=== PATIENT | male | born 1960 | race Hispanic/Latino ===

== ENCOUNTER 2018-10-18 11:41 | Day surgery (SDC) | payer MEDICARE ==
[2018-10-17 11:17] VITALS: BMI 27.4
[~2018-10-18 11:41] MED LIST: EPINEPHrine 0.3 MG, Dextrose 50% 3 ML in Ophthalmic Irrigation Solution 500 ML IVP SCH; Fentanyl 100 MCG/2 ML VIAL ONE; Midazolam HCl 2 mg/2 ml Vial ONE
[2018-10-18] MEDS ORDERED: Phenylephrine 2.5% Ophth Soln 5 ML BOT ONE (11:54)
[2018-10-18] MEDS ORDERED: Cyclopentolate 1% Opth Drop 2 ML BOT ONE (11:54)
--- NOTE | 2018-10-18 19:05 | OP ---
DATE OF PROCEDURE: 10/18/2018 PREOPERATIVE DIAGNOSES: Vitreous hemorrhage, epiretinal membranes, proliferative diabetic retinopathy, left eye. POSTOPERATIVE DIAGNOSIS: Vitreous hemorrhage, epiretinal membranes, proliferative diabetic retinopathy, left eye. PROCEDURE PERFORMED: Pars plana vitrectomy, membrane peel, left eye. ANESTHESIA: Local with monitored anesthesia care. PROCEDURE IN DETAIL: The patient was identified in preoperative holding area. Appropriate informed consent for the planned surgical procedure on the left eye had been obtained. The patient was transported to the operative suite. Appropriate cardiopulmonary monitoring was established. Local anesthesia obtained using retrobulbar modified Van Lint lid block using 50:50 mixture of 4% lidocaine and 0.75% bupivacaine. The patient was prepped and draped in usual sterile manner for ophthalmic surgery. Left eye lid speculum was placed in left eye. A 25-gauge trocar was placed in conjunctiva and sclera superotemporally, inferotemporally, supranasally. Infusion line was placed inferotemporally. Light pipe vitreous cutter was inserted into the eye. Core vitrectomy was performed. Dense vitreous hemorrhage was removed from the eye revealing tractional elements on the retina. These were peeled from the nerve and retinal periphery without complication. Panretinal photocoagulation was placed into all non-treated non-macular areas of the retina. Trocars were removed. The eye was noted to retain pressure well. Retrobulbar Kenalog and subconjunctival Ancef were placed. Antibiotic ointment placed. The eye was patched and shielded. The patient was taken to the postoperative recovery unit in good condition having suffered no immediate perioperative complications. The patient was instructed to keep patch and shield on, avoid lifting or bending. Followup appointment with Dr. Hall. Job ID: [id number]
== END 2018-10-18 14:33 | disposition home or self-care (01) ==
LOC: SDC 11:41
PROVIDERS: ATTEND Ophthalmology Retina Specialist
PROC: 08T53ZZ Resection of Left Vitreous, Percutaneous Approach (ICD-10-PCS; principal; 2018-10-18)
PROC: 08NF3ZZ Release Left Retina, Percutaneous Approach (ICD-10-PCS; 2018-10-18)
DX: H43.12 Vitreous hemorrhage, left eye (principal); E11.3592 Type 2 diabetes mellitus with proliferative diabetic retinopathy without macular edema, left eye; Z79.84 Long term (current) use of oral hypoglycemic drugs; Z79.899 Other long term (current) drug therapy
CPT/HCPCS: J0171; J2250; J3010

== ENCOUNTER 2019-11-25 09:14 | Outpatient (CLI) | payer MEDICARE ==
--- NOTE | 2019-11-25 10:41 | RAD ---
LUMBAR SPINE 2 VIEWS: HISTORY: Low back pain. FINDINGS: Mild dextroscoliosis. Multilevel disk-osteophytosis and facet arthrosis. No focal bone lesion. No fracture or dislocation. IMPRESSION: Generalized spondylosis. No fracture or dislocation. Possible small left lower pole renal calculus. POS: OFF
--- NOTE | 2019-11-25 10:45 | RAD ---
LEFT HP 2 VIEWS: LEFT HIP 2 VIEWS: HISTORY: Left hip pain. FINDINGS/IMPRESSION: Mild osteoarthrosis change left hip joint and sacroiliac joint without acute fracture or dislocation or other acute process. POS: OFF
--- NOTE | 2019-11-25 10:47 | RAD ---
RIGHT HIP 2 VIEWS: Date: 11/25/2019 HISTORY: Right hip pain without injury. FINDINGS/IMPRESSION: Mild degenerative and osteoarthrosis change. No acute fracture or dislocation. POS: OFF
--- NOTE | 2019-11-25 10:58 | RAD ---
LEFT HAND 3 VIEWS: HISTORY: Left hand pain. FINDINGS: Osteoarthrosis changes are noted, particularly of the trapezium 1st metacarpal joint. Arteriovascula r calcifications. IMPRESSION: Osteoarthrosis and degenerative change. No fracture or dislocation. Vascular calcifications. POS: OFF
== END 2019-11-25 09:15 | disposition home or self-care (01) ==
LOC: BICRAD 09:14
PROVIDERS: ATTEND Family Medicine
DX: M54.5 Low back pain (principal); M25.542 Pain in joints of left hand; M25.552 Pain in left hip; M19.042 Primary osteoarthritis, left hand; I70.90 Unspecified atherosclerosis; M16.0 Bilateral primary osteoarthritis of hip
CPT/HCPCS: 72100

== ENCOUNTER 2020-02-10 12:22 | Inpatient (IN) | payer MEDICARE ==
[2020-02-10 15:15] LABS: #Eosinphils 0.2 thou/uL (0.0-0.7); #Lymphocytes 1.7 thou/uL (1.20-3.40); #Neutrophils 12.1 thou/uL (1.40-6.50); %Basophils 0.2 % (0.0-1.0); %Eosinophils 1.4 % (0.0-10.0); %Lymphocytes 11.6 % (21.0-51.0); %Monocytes 6.6 % (0.0-10.0); %Neutrophils 80.3 % (42.0-75.0); Hemoglobin 15.1 g/dL (14.0-18.0); Mean Corpuscular Hemoglobin 30.9 pg (27.0-31.0); Mean Corpuscular Volume 90.9 fL (78.0-98.0); Mean Platelet Volume 7.2 fL (7.4-10.4); Platelet Count 330 thou/uL (130-400); RBC Distribution Width 12.6 % (11.5-14.5)
--- NOTE | 2020-02-10 15:29 | RAD ---
PORTABLE CHEST: Date: 02/10/2020 INDICATION: Right leg pain. Comparison made to chest film of 06/09/2014. There is abnormal density overlying the left midline lung. This could represent focal consolidation o r underlying lung mass. Recommend clinical correlation and consider further evaluation with CT chest. Right lung appears clear. Heart and mediastinum unremarkable. IMPRESSION: Abnormal density left mid lung. Findings could represent focal infiltrate if there are clinical signs of pneumonia. Follow-up is recommended. If there is no clinical evidence of pneumonia, suggest follo w-up CT chest. POS: OFF
[2020-02-10 15:39] LABS: ALT (SGPT) 18 U/L (8-55); AST (SGOT) 12 U/L (5-34); Albumin 3.7 g/dL (3.4-4.8); Alkaline Phosphatase 115 U/L (40-110); Anion Gap 19 mmol/L (10-20); BUN (Urea Nitrogen) 19 mg/dL (8.4-25.7); Bilirubin, Total 0.4 mg/dL (0.2-1.2); Calc. Creatinine Clearance 0 mL/min (70-130); Calcium 9.9 mg/dL (7.8-10.44); Carbon Dioxide 21 mmol/L (23-31); Chloride 101 mmol/L (98-107); Glucose 245 mg/dL (80-115); Potassium 4.2 mmol/L (3.5-5.1); Protein, Total 7.7 g/dL (5.8-8.1); Sodium 137 mmol/L (136-145)
[2020-02-10] MEDS ORDERED: Vancomycin 1 GM/200 ML BAG ONE (16:07)
[2020-02-10] MEDS ORDERED: Cefepime 2 GM VIAL ONE (16:07)
[2020-02-10] MEDS ORDERED: Lidocaine 1% w/Epinephrine 1:100K 20 ML VIAL ONE (16:49)
[2020-02-10] MEDS ORDERED: Morphine 4 MG/ML VIAL ONE (16:57)
[2020-02-10] MEDS ORDERED: Ondansetron PF 4 MG/2 ML Vial ONE (16:57)
[2020-02-10] MEDS ORDERED: Dextrose 50% Abboject 50 ML SYRINGE SLOW IVP PRN (18:02)
[2020-02-10] MEDS ORDERED: Acetaminophen 325 MG TAB PO PRN (18:02)
[2020-02-10] MEDS ORDERED: HumaLOG 300 UNITS/3 ML VIAL SC PRN ×2 (18:02)
[2020-02-10] MEDS ORDERED: Senokot S 8.6-50 MG TAB PO PRN (18:02)
[2020-02-10] MEDS ORDERED: Morphine 2 MG/ML VIAL SLOW IVP PRN (18:02)
[2020-02-10] MEDS ORDERED: Guaifenesin DM 100-10/5 ML UDCUP PO PRN (18:02)
[2020-02-10] MEDS ORDERED: Ondansetron PF 4 MG/2 ML Vial IVP PRN (18:02)
[2020-02-10] MEDS ORDERED: Bisacodyl 10 MG SUPP PR PRN (18:02)
[2020-02-10] MEDS ORDERED: Dextrose 5% in Water 1,000 ML IV PRN (18:02)
--- NOTE | 2020-02-10 18:35 | HP ---
REASON FOR ADMISSION: Abscess x2 over right medial thigh and right medial knee aspects and sepsis. HISTORY OF PRESENTING ILLNESS: The patient gives history of developing a pimple in the medial aspect of his right thigh and the medial aspect of his right knee, both at the same time, 8 days back. This has been progressively enlarging and started to hurt and become red. The patient also developed fever. The pain got worse and he was also not able to use his prosthesis to ambulate on the right knee. No exposure to COVID. No cough or expectoration. PAST MEDICAL AND SURGICAL HISTORY: History of diabetes mellitus type 2, hypertension, dyslipidemia, right BKA, left toes amputated. CURRENT MEDICATIONS: 1. Lisinopril 10 mg daily. 2. Farxiga 10 mg daily. ALLERGIES: NO KNOWN DRUG ALLERGIES. PERSONAL HISTORY: Does not abuse alcohol or drugs. No history of smoking. The patient lives with his , has a prosthesis, but has not been able to use it due to the current abscess, swelling, and pain. FAMILY HISTORY: Mother is living and is 87 years old. He does not know much about his father. CODE STATUS: Full. Power of employment attorney is his . REVIEW OF SYSTEMS: CONSTITUTIONAL: Negative for weight loss or gain, ability to conduct usual activities. SKIN: Negative for rash, itching. EYES: Negative for double vision, pain. ENT/MOUTH: Negative for nose bleeding, neck stiffness, pain, tenderness. CARDIOVASCULAR: Negative for palpitations, dyspnea on exertion, orthopnea. RESPIRATORY: Negative for shortness of breath, wheezing, cough, hemoptysis, fever or night sweats. GASTROINTESTINAL: Negative for poor appetite, abdominal pain, heartburn, nausea, vomiting, constipation, or diarrhea. GENITOURINARY: Negative for urgency, frequency, dysuria, nocturia. MUSCULOSKELETAL: Negative for pain, swelling. NEUROLOGIC/PSYCHIATRIC: Negative for anxiety, depression. ALLERGY/IMMUNOLOGIC: Negative for skin rash, bleeding tendency. PHYSICAL EXAMINATION: GENERAL: The patient is a 60-year-old male who is currently not in any acute distress. VITAL SIGNS: Blood pressure 154/83, pulse 100 per minute, respiratory rate 20 per minute, temperature 98.2 degrees Fahrenheit, saturating 99% on room air. NECK: Supple. No elevated JVD. HEENT: Eyes; extraocular muscles intact. Pupils reacting to light. Oral cavity, mucous membranes are dry. No exudates or congestion. CARDIOVASCULAR SYSTEM: S1 and S2 heard. Regular rhythm. RESPIRATORY SYSTEM: Air entry 1+ bilateral. No rales or rhonchi. ABDOMEN: Soft. Bowel sounds heard. No tenderness, rigidity, or guarding. EXTREMITIES: The patient has had incision and drainage done with removal of nearly 100 mL of purulent material from his right medial thigh and right medial knee aspect abscess per Dr. Griffin. He still has induration around the incision site. Peripheral pulses are 1+ bilateral. No ischemic ulcers or gangrene. CENTRAL SYSTEM: No gross focal motor deficits noted. The patient is alert, awake, and oriented. PSYCHIATRIC SYSTEM: The patient's mood is euthymic. No hallucinations or delusions. LABORATORY DATA: White count of 15, H and H 15 and 44, platelet count 330 with 80% neutrophils. Serum bicarb 21, BUN 19, creatinine 1.3, serum glucose 245. Liver enzymes within normal limits. Albumin is 3.7. Chest x-ray done shows questionable infiltrate in the left mid lung area. CLINICAL IMPRESSION AND PLAN: The patient will be admitted to medical floor for right lower extremity abscess x2. The patient likely has underlying pockets of further purulence with extended induration and erythema around the site. He will be on vancomycin and Zosyn. Hopefully, wound cultures have been obtained in the ER and we will follow up on that. We will also consult Dr. Poole with the patient likely require requiring more extended incision to clear the abscess. He has known history of diabetes and his serum sugar was 245. We will continue his lisinopril and Crestor as before. We will gently hydrate him with normal saline at 100 mL per hour. We will also obtain a COVID-19 PCR if he requires further debridement. Job ID: [id number]
[2020-02-10] MEDS ORDERED: Famotidine 20 MG TAB ONE (20:16)
[2020-02-10] MEDS: Famotidine 20 MG TAB PO SCH (20:26)
[2020-02-10] MEDS: Sodium Chloride 0.9% 1,000 ML IV SCH (20:27)
[2020-02-10] MEDS: Insulin Glargine 10 UNITS in Pre-Filled Syringe 1 EACH SC SCH (20:49)
[2020-02-10] MEDS: Piperacillin/Tazobactam 3.375 GM in Sodium Chloride 0.9% 100 ML IVPB SCH (23:54)
[2020-02-11 00:46] LABS: SARS-CoV-2 MS2 Positive; SARS-CoV-2 N Gene Negative; SARS-CoV-2 S Gene Negative; SARS-CoV-2 by NAA Not Detected (NotDetected); SARS-CoV-2 orf1ab Negative
[2020-02-11 03:40] VITALS: BMI 26.5
[2020-02-11] MEDS: Piperacillin/Tazobactam 3.375 GM in Sodium Chloride 0.9% 100 ML IVPB SCH ×3 (05:39→21:54)
[2020-02-11] MEDS: Vancomycin HCl 750 MG in Sodium Chloride 0.9% 250 ML 250 ML IVPB SCH ×2 (05:43→18:06)
[2020-02-11] MEDS: Sodium Chloride 0.9% 1,000 ML IV SCH (05:45)
[2020-02-11 06:46] LABS: #Basophils 0.1 thou/uL (0.0-0.2); #Eosinphils 0.2 thou/uL (0.0-0.7); #Lymphocytes 1.9 thou/uL (1.20-3.40); #Monocytes 1.1 thou/uL (0.11-0.59); #Neutrophils 8.8 thou/uL (1.40-6.50); %Basophils 0.7 % (0.0-1.0); %Lymphocytes 15.5 % (21.0-51.0); %Monocytes 9.2 % (0.0-10.0); %Neutrophils 72.6 % (42.0-75.0); Hemoglobin 12.8 g/dL (14.0-18.0); Mean Corpuscular HGB CONC 33.6 g/dL (32.0-36.0); Mean Corpuscular Volume 92.3 fL (78.0-98.0); Mean Platelet Volume 7.1 fL (7.4-10.4); Platelet Count 286 thou/uL (130-400); RBC Distribution Width 12.5 % (11.5-14.5); Red Blood Cell (RBC) Count 4.14 mill/uL (4.70-6.10); White Blood Cell (WBC) Count 12.2 thou/uL (4.8-10.8)
[2020-02-11 07:09] LABS: Anion Gap 15 mmol/L (10-20); BUN (Urea Nitrogen) 17 mg/dL (8.4-25.7); Calc. Creatinine Clearance 74 mL/min (70-130); Calcium 8.6 mg/dL (7.8-10.44); Carbon Dioxide 21 mmol/L (23-31); Chloride 105 mmol/L (98-107); Glucose 198 mg/dL (80-115); Potassium 3.7 mmol/L (3.5-5.1); Sodium 137 mmol/L (136-145)
--- NOTE | 2020-02-11 08:47 | PDOC.HOSPP ---
- Subjective Encounter Date: 02/11/20 Encounter Time: 08:00 Subjective: no pain this morning, feels better is npo for possible debribement - Objective Vital Signs & Weight: Vital Signs (12 hours) Temp Pulse Resp BP Pulse Ox 02/11/20 07:34 98.7 F 68 20 114/68 97 02/11/20 04:43 98.9 F 76 20 116/70 96 02/11/20 00:00 98.8 F 77 20 126/68 98 02/10/20 22:30 98.8 F 95 02/10/20 22:00 101.0 F H 02/10/20 21:53 101.0 F H 89 20 147/71 H 95 Weight Weight 164 lb 9.6 oz I&O: 02/10/20 02/11/20 02/12/20 06:59 06:59 06:59 Intake Total 1750 Output Total 700 Balance 1050 Result Diagrams: 02/11/20 06:20 02/11/20 06:20 Additional Labs: Accuchecks 02/11/20 02/10/20 04:46 20:24 POC Glucose 178 H 201 H Hospitalist ROS - Medication Medications: Active Medications Generic Name Dose Route Start Last Admin Trade Name Freq PRN Reason Stop Dose Admin Acetaminophen 650 mg 02/10/20 18:02 02/10/20 22:00 Acetaminophen 325 Mg Tab PO 650 mg Q4H PRN Administration Headache/Fever/Mild Pain (1-3) Famotidine 20 mg 02/10/20 21:00 02/10/20 20:26 Famotidine 20 Mg Tab PO 20 mg BID DANICA Administration Sodium Chloride 1,000 mls @ 100 mls/hr 02/10/20 18:02 02/11/20 05:45 Normal Saline 0.9% IV 02/11/20 14:01 Not Given .Q10H DANICA Vancomycin HCl 750 mg/ Sodium 250 mls @ 250 mls/hr 02/11/20 05:00 02/11/20 05:43 Chloride IVPB 250 mls 0500,1700 DANICA Administration Piperacillin Sod/Tazobactam 100 mls @ 200 mls/hr 02/10/20 22:00 02/11/20 05:39 Sod 3.375 gm/ Sodium Chloride IVPB 100 mls Q8HR DANICA Administration Insulin Glargine 10 units/ 0.1 mls @ 0 mls/hr 02/10/20 21:00 02/10/20 20:49 Miscellaneous Medication SC 0.1 mls BID DANICA Administration Sodium Chloride 10 ml 02/10/20 21:00 02/10/20 20:53 Flush - Normal Saline 10 Ml Syringe IVF 10 ml Q12HR DANICA Administration - Exam General Appearance: awake alert Eye: PERRL, anicteric sclera ENT: no oropharyngeal lesions, moist mucosa Neck: supple, no JVD Heart: RRR, no murmur Respiratory: no wheezes, no rales Gastrointestinal: soft, non-distended, normal bowel sounds Gastrointestinal - other findings: right thigh and knee area abscess are in dressing Extremities: 1+ LE edema Skin: normal turgor, no rashes Neurological: cranial nerve grossly intact, no focal deficits Psychiatric: normal affect, A&O x 3 Hosp A/P (1) Abscess of right thigh Code(s): L02.415 - CUTANEOUS ABSCESS OF RIGHT LOWER LIMB Status: Acute (2) Sepsis Code(s): A41.9 - SEPSIS, UNSPECIFIED ORGANISM Status: Acute Qualifiers: Sepsis type: sepsis due to unspecified organism Sepsis acute organ dysfunction status: without acute organ dysfunction Qualified Code(s): A41.9 - Sepsis, unspecified organism (3) Diabetes type 2, uncontrolled Code(s): E11.65 - TYPE 2 DIABETES MELLITUS WITH HYPERGLYCEMIA Status: Chronic Qualifiers: Glycemic state: with hyperglycemia Qualified Code(s): E11.65 - Type 2 diabetes mellitus with hyperglycemia (4) HTN (hypertension) Code(s): I10 - ESSENTIAL (PRIMARY) HYPERTENSION Status: Chronic Qualifiers: Hypertension type: essential hypertension Qualified Code(s): I10 - Essential (primary) hypertension (5) History of right below knee amputation Code(s): Z89.511 - ACQUIRED ABSENCE OF RIGHT LEG BELOW KNEE Status: Chronic (6) Dyslipidemia Code(s): E78.5 - HYPERLIPIDEMIA, UNSPECIFIED Status: Chronic - Plan is on vanc and zosyn, await culture results likely might need further exploration of thigh and medial knee abscess with deep pockets/induration continue lantus for now along with lisinopril and crestor await opinion
[2020-02-11] MEDS: HYDROcodone/Acetaminophen 5/325 mg Tablet PO PRN ×3 (09:54→21:52)
[2020-02-11] MEDS: Lisinopril 10 MG TAB PO SCH (11:48)
[2020-02-11] MEDS: Enoxaparin Sodium 40 MG/0.4 ML SYRINGE SC SCH (11:50)
[2020-02-11] MEDS: Insulin Glargine 10 UNITS in Pre-Filled Syringe 1 EACH SC SCH ×2 (11:50→20:33)
[2020-02-11] MEDS: Famotidine 20 MG TAB PO SCH ×3 (11:53→20:30)
[2020-02-11] MEDS: Rosuvastatin 20 MG TAB PO SCH (16:26)
--- NOTE | 2020-02-12 01:46 | CON ---
DATE OF CONSULTATION: 02/11/2020 REASON FOR CONSULTATION: Right leg abscesses. HISTORY OF PRESENT ILLNESS: Patient is a 60-year-old diabetic male, well known to myself from prior operations. He has a history of a right below-knee amputation in approximately 2001. He had an infection with osteomyelitis associated with this in 2015, and I performed a revision of his below-knee amputation about 4 years ago. Because it was revised from existing amputation, I was not really able to get a good muscle flap over the end of the bone. Nonetheless, it has healed appropriately and has worked well for him for 4 years. I also performed 3 or 4 operations in regard to his left foot with a transmetatarsal amputation and subsequent metatarsectomy secondary to infection. The last operation of these was performed, I believe in 2017. I have not evaluated him or seen him in the past 3 years. He presented to the emergency room because of pain and obvious infection involving the medial aspect of his right leg. He notes problems with a sleeve in the prosthesis in the right lower leg. He has apparently had problems with this over the course of the past few years. He believes he has had progressive infection involving his below-knee amputation stump over the course of the past few weeks. He notes that it has become much bigger, more swollen, more painful recently and this led to him presenting to the emergency room last night. Apparently in the emergency room, 2 separate abscesses were drained, 1 in the lower inner thigh and 1 along the below-knee aspect of the stump. He notes significant pain from this and noted severe pain with the drainage procedure. Cultures were obtained and these reveal staphylococcus with sensitivities not yet determined. He has been started on vancomycin and Zosyn. PAST MEDICAL HISTORY: 1. Diabetes mellitus type 2. 2. Hypertension. 3. Dyslipidemia. PAST SURGICAL HISTORY: 1. Right below-knee amputation, 2001. 2. Right below-knee amputation revision, 2016. 3. Three or four operations on his left foot resulting in a transmetatarsal amputation, most recently revised in 2017. PRIMARY CARE PHYSICIAN: Anne Gonzalez MD MEDICATIONS: 1. Lisinopril. 2. Farxiga. ALLERGIES: NO KNOWN DRUG ALLERGIES. PERSONAL AND SOCIAL HISTORY: He does not drink or smoke. He lives with his . He normally ambulates with prosthesis, but he is not currently using this because of the swelling and pain. REVIEW OF SYSTEMS: Ten-system review is obtained, is otherwise entirely unremarkable. FAMILY HISTORY: Noncontributory. PHYSICAL EXAMINATION: VITAL SIGNS: Temperature is 98.1, his temperature upon admission yesterday was 101.0; pulse is 78; blood pressure 156/77. GENERAL: Well-developed, well-nourished, pleasant male resting in bed, in no acute distress. He is alert and oriented x3. HEAD, EYES, EARS, NOSE, AND THROAT: Unremarkable. NECK: Supple without mass or tenderness. LUNGS: Clear to auscultation throughout. CARDIAC: Regular rate and rhythm without murmur. ABDOMEN: Soft, nontender, nondistended. EXTREMITIES: Examination is limited currently to his right lower extremity. He has obvious swelling, fluctuance, erythema, and tenderness along a long segment of his right leg extending from the distal one-third of the thigh down to his amputation stump. There is an area of fluctuance along the medial aspect of his below-knee amputation stump. There is a dry area almost like eschar, a little laterally and I fear this is the bone starting to protrude through the skin. Between those areas of infection on the medial aspect, the skin is taut and shiny and painful. I suspect he had an abscess that began at his distal stump and has tracked proximally. LABORATORY DATA: His white blood cell count yesterday was 15, today it is 12.2; hemoglobin is 12.8 after hydration. His chemistry panel reveals essentially normal electrolytes. His blood sugars are elevated between 140 and 200. ASSESSMENT: Patient with a complex abscess along the medial aspect of the right lower extremity. This will require incision and drainage in the operating room. There are multiple components to this, and I anticipate making a series of counter incisions with irrigation and debridement of the cavity. I would anticipate placement of Andressa drains to allow the infection to resolve. Hopefully, there is no bony infection associated. I will obtain imaging to make sure there is no obvious evidence of osteomyelitis. Job ID: [id number]
[2020-02-12 04:29] LABS: Vancomycin, Trough 9.2 ug/mL
[2020-02-12] MEDS: Piperacillin/Tazobactam 3.375 GM in Sodium Chloride 0.9% 100 ML IVPB SCH ×3 (05:23→21:11)
[2020-02-12] MEDS: Vancomycin 1 GM in Premix Bag 1 BAG IVPB SCH ×2 (05:27→16:34)
[2020-02-12] MEDS: HYDROcodone/Acetaminophen 5/325 mg Tablet PO PRN (06:25)
[2020-02-12] MEDS: Enoxaparin Sodium 40 MG/0.4 ML SYRINGE SC SCH (08:20)
[2020-02-12] MEDS: Lisinopril 10 MG TAB PO SCH (08:24)
[2020-02-12] MEDS: Famotidine 20 MG TAB PO SCH ×2 (08:25→20:33)
[2020-02-12] MEDS: Rosuvastatin 20 MG TAB PO SCH (08:25)
[2020-02-12] MEDS: Insulin Glargine 10 UNITS in Pre-Filled Syringe 1 EACH SC SCH ×2 (08:26→20:34)
[2020-02-12] MEDS ORDERED: Lidocaine 1% PF 5 ML VIAL ONE (09:08)
[2020-02-12] MEDS ORDERED: Ondansetron PF 4 MG/2 ML Vial ONE (09:08)
[2020-02-12] MEDS ORDERED: PROPOFOL 200 MG/20 ML VIAL ONE (09:08)
--- NOTE | 2020-02-12 10:03 | PDOC.HOSPP ---
- Subjective Encounter Date: 02/12/20 Encounter Time: 09:00 Subjective: has medial thigh pain, is npo for surgery today - Objective Vital Signs & Weight: Vital Signs (12 hours) Temp Pulse Resp BP BP Pulse Ox 02/12/20 08:28 98.4 F 63 18 145/74 H 95 02/12/20 08:24 145/74 H 02/12/20 03:47 98.0 F 63 15 143/73 H 96 Weight Admit Weight 164 lb 9.6 oz Weight 164 lb 9.6 oz I&O: 02/11/20 02/12/20 02/13/20 06:59 06:59 06:59 Intake Total 3120 950 Output Total 2400 1620 Balance 720 -670 Result Diagrams: 02/11/20 06:20 02/11/20 06:20 Additional Labs: Accuchecks 02/12/20 02/11/20 02/11/20 04:57 19:46 16:03 POC Glucose 139 H 172 H 140 H 02/11/20 11:09 POC Glucose 156 H Hospitalist ROS - Medication Medications: Active Medications Generic Name Dose Route Start Last Admin Trade Name Freq PRN Reason Stop Dose Admin Acetaminophen 650 mg 02/10/20 18:02 02/10/20 22:00 Acetaminophen 325 Mg Tab PO 650 mg Q4H PRN Administration Headache/Fever/Mild Pain (1-3) Hydrocodone Bitart/Acetaminophen 1 tab 02/10/20 18:02 02/12/20 06:25 Hydrocodone/Acetaminophen 5/325 Mg Tablet PO 1 tab Q4H PRN Administration Moderate Pain (4-6) Enoxaparin Sodium 40 mg 02/11/20 09:00 02/12/20 08:20 Enoxaparin Sodium 40 Mg/0.4 Ml Syringe SC Not Given 0900 DANICA Famotidine 20 mg 02/10/20 21:00 02/12/20 08:25 Famotidine 20 Mg Tab PO 20 mg BID DANICA Administration Piperacillin Sod/Tazobactam 100 mls @ 200 mls/hr 02/10/20 22:00 02/12/20 05:23 Sod 3.375 gm/ Sodium Chloride IVPB 100 mls Q8HR DANICA Administration Insulin Glargine 10 units/ 0.1 mls @ 0 mls/hr 02/10/20 21:00 02/12/20 08:26 Miscellaneous Medication SC Not Given BID DANICA Vancomycin HCl 1 gm/ Device 200 mls @ 200 mls/hr 02/12/20 05:00 02/12/20 05:27 IVPB 200 mls 0500,1700 DANICA Administration Lisinopril 10 mg 02/11/20 09:00 02/12/20 08:24 Lisinopril 10 Mg Tab PO 10 mg DAILY DANICA Administration Rosuvastatin Calcium 40 mg 02/11/20 09:00 02/12/20 08:25 Rosuvastatin 20 Mg Tab PO 40 mg DAILY DANICA Administration Sodium Chloride 10 ml 02/10/20 21:00 02/12/20 08:27 Flush - Normal Saline 10 Ml Syringe IVF 10 ml Q12HR DANICA Administration - Exam General Appearance: awake alert Eye: PERRL, anicteric sclera ENT: no oropharyngeal lesions, moist mucosa Neck: supple, no JVD Heart: RRR, no murmur Respiratory: no wheezes, no rales Gastrointestinal: soft, non-tender, non-distended, normal bowel sounds Extremities - other findings: right medial thigh fluctuation and tenderness++ Neurological: cranial nerve grossly intact, no focal deficits Psychiatric: normal affect, A&O x 3 Hosp A/P (1) Abscess of right thigh Code(s): L02.415 - CUTANEOUS ABSCESS OF RIGHT LOWER LIMB Status: Acute (2) Sepsis Code(s): A41.9 - SEPSIS, UNSPECIFIED ORGANISM Status: Acute Qualifiers: Sepsis type: sepsis due to unspecified organism Sepsis acute organ dysfunction status: without acute organ dysfunction Qualified Code(s): A41.9 - Sepsis, unspecified organism (3) Diabetes type 2, uncontrolled Code(s): E11.65 - TYPE 2 DIABETES MELLITUS WITH HYPERGLYCEMIA Status: Chronic Qualifiers: Glycemic state: with hyperglycemia Qualified Code(s): E11.65 - Type 2 diabetes mellitus with hyperglycemia (4) HTN (hypertension) Code(s): I10 - ESSENTIAL (PRIMARY) HYPERTENSION Status: Chronic Qualifiers: Hypertension type: essential hypertension Qualified Code(s): I10 - Essential (primary) hypertension (5) History of right below knee amputation Code(s): Z89.511 - ACQUIRED ABSENCE OF RIGHT LEG BELOW KNEE Status: Chronic (6) Dyslipidemia Code(s): E78.5 - HYPERLIPIDEMIA, UNSPECIFIED Status: Chronic - Plan is on vanc and zosyn, cultures are growing mrsa, may need iv antibiotics?picc line await opinion after exploration today. is on lantus, lisinopril and crestor hemostable
--- NOTE | 2020-02-12 11:57 | RAD ---
EXAM: XR Knee Rt 3 View DATE: 02/11/2020 5:38 PM INDICATION: History of osteomyelitis COMPARISON: September 03, 2019, 4 views of the right knee FINDING: There is soft tissue gas seen along the medial aspect of the distal right thigh and right k nee. No destructive osteolytic is seen to suggest radiographic evidence of osteomyelitis. There are moderate vascular calcifications seen involving the visualized vasculature. There is mild osteoarthro sis of the right knee. IMPRESSION:Soft tissue gas in the medial distal right thigh and right knee is suspicious for soft tis jonah bacterial infection. No radiographic evidence of osteomyelitis involving the right BKA stump.
[2020-02-12] MEDS ORDERED: Fentanyl 100 MCG/2 ML VIAL ONE ×3 (12:41→14:11)
[2020-02-12] MEDS ORDERED: Bupivacaine 0.25% HCL 30 ML VIAL ONE (13:21)
[2020-02-12] MEDS ORDERED: Lidocaine 1% w/Epinephrine 1:100K 20 ML VIAL ONE (13:21)
[2020-02-12] MEDS ORDERED: Morphine 4 MG/ML VIAL ONE (14:05)
[2020-02-12] MEDS ORDERED: Morphine Sulfate 2 MG/ML SYRINGE SLOW IVP PRN (14:15)
[2020-02-12] MEDS ORDERED: PACU-Morphine 4MG/ML VIAL SLOW IVP PRN (14:15)
[2020-02-12] MEDS ORDERED: Non-Formulary Medication 1 EACH PO PRN (14:15)
[2020-02-12] MEDS ORDERED: Morphine 2 MG/ML VIAL ONE (14:19)
[2020-02-12] MEDS ORDERED: Piperacillin/Tazobactam 3.375 GM VIAL ONE (14:53)
[2020-02-13] MEDS: Vancomycin 1 GM in Premix Bag 1 BAG IVPB SCH (04:52)
[2020-02-13] MEDS: Piperacillin/Tazobactam 3.375 GM in Sodium Chloride 0.9% 100 ML IVPB SCH ×2 (05:51→15:27)
--- NOTE | 2020-02-13 07:14 | OP ---
DATE OF PROCEDURE: 02/12/2020 PREOPERATIVE DIAGNOSIS: Complex right lower extremity abscess. POSTOPERATIVE DIAGNOSIS: Complex right lower extremity abscess. OPERATION PERFORMED: Incision and drainage of complex right lower extremity abscess with placement of Andressa drains. ANESTHESIA: General with laryngeal mask airway. INDICATIONS: The patient is a 60-year-old diabetic male. He has a long history of a right below-knee amputation. This was last revised several years ago. He has ongoing problems with his below-knee amputation prosthesis. He presented to the hospital a couple of days ago with an obvious infection associated with this leg. On examination, he has a fluctuant edematous and shiny skin along the medial aspect of the right leg extending down to the medial aspect of his stump. He is taken to the operating room for incision and drainage of an obvious abscess. This has been partially drained in the emergency room previously. He has been on appropriate antibiotics for the past day and a half. DESCRIPTION OF OPERATION: Informed consent was obtained, patient taken to the operating room, where general anesthesia obtained, patient in supine position. Right leg was prepped with Betadine, draped in sterile fashion. Local anesthetic was infiltrated using a mixture of 0.25% Marcaine, 1% lidocaine with epinephrine. I made 3 separate incisions, 1 was over the fluctuant area in the medial aspect of his stump, 1 was over the fluctuant area several centimeters proximally over approximately the knee joint and the 3rd was several centimeters proximally on the medial lower thigh. There was purulent material at each of these 3 sites. As I expected, these 3 sites communicated secondary to a long complex abscess contract that I suspect started from the distal stump and tracked proximally in the soft tissue. I passed a 1-inch Andressa drain between the proximal and the middle openings and secured that drain to itself with a 3-0 nylon suture. I passed a similar drain between the middle and the distal openings and secured this to itself in a similar fashion. I flushed the abscess tracts with peroxide copiously. I debrided the tracts with gauze by pulling gauze between the 3 openings. I then placed external gauze dressing and a light Manuel wrap. There was no immediate evidence of bony involvement at any site, most significantly the distal site. The patient tolerated the procedure well and was taken to recovery in stable condition. I would anticipate leaving the Andressa drains in for at least 1 week before removal while continuing appropriate antibiotics. Job ID: [id number]
[2020-02-13] MEDS: Famotidine 20 MG TAB PO SCH (08:18)
[2020-02-13] MEDS: Lisinopril 10 MG TAB PO SCH (08:18)
[2020-02-13] MEDS: Insulin Glargine 10 UNITS in Pre-Filled Syringe 1 EACH SC SCH (08:19)
[2020-02-13] MEDS: Rosuvastatin 20 MG TAB PO SCH (08:19)
[2020-02-13] MEDS: Enoxaparin Sodium 40 MG/0.4 ML SYRINGE SC SCH (08:20)
--- NOTE | 2020-02-13 10:46 | PRG ---
DATE OF SERVICE: 02/13/2020 SUBJECTIVE: Mr. Lind is postoperative day #1 following incision and drainage of complex abscess on right lower extremity. This is a superficial soft tissue abscess. There is no evidence of underlying bone infection. Two separate Andressa drains were placed connecting the various tracts that were drained through three counter incisions. The patient has no complaints. Dressing is intact from operation yesterday. It is noted that cultures revealed MRSA which is sensitive to Bactrim. PHYSICAL EXAMINATION: VITAL SINGS: The patient is afebrile. Pulse rate 67 and blood pressure 125/73. LUNGS: Clear to auscultation. ABDOMEN: Benign. EXTREMITIES: Leg dressing is intact with Manuel wrap covering the gauze dressing. LABORATORY DATA: There are no new labs. ASSESSMENT: The patient is doing well following the drainage of a complex superficial abscess on the right lower extremity. No further surgical intervention is necessary. Given that this is a superficial infection, I believe he is stable for discharge home with external wound care and oral antibiotics. I will see him back in my office in one week for removal of [place] drains. Discharge will be per Hospitalist Service. Job ID: [id number]
[2020-02-13 15:33] VITALS: BP 173/88; TEMP 97.9
--- NOTE | 2020-02-13 17:27 | DIS ---
DATE OF ADMISSION: 02/10/2020 DATE OF DISCHARGE: 02/13/2020 DISCHARGE DISPOSITION: To home. PRIMARY DISCHARGE DIAGNOSIS: Right lower extremity abscess x2, status post incision and drainage. SECONDARY DISCHARGE DIAGNOSES: 1. Diabetes mellitus type 2. 2. Hypertension. 3. History of right [id number] amputation. 4. Dyslipidemia. PROCEDURES DONE DURING HOSPITALIZATION: The patient has had incision and drainage of the right thigh abscess x2. Knee x-ray done on the right side did not reveal any osteomyelitis. H and H 12 and 38, platelet count 286, white count of 15 on admission, 12 on the 1st. BUN 17, creatinine 1.0. COVID-19 PCR was not detected on 02/10/2020. Wound cultures have grown MRSA, sensitive to Bactrim, vancomycin, tetracycline, rifampin, linezolid, gentamicin, doxycycline, clindamycin. DISCHARGE MEDICATIONS: 1. Bactrim Double Strength 1 tablet twice daily for a total of 14 days. 2. Lisinopril 10 mg p.o. daily. 3. Farxiga 10 mg p.o. q.a.m. 4. Ultram p.r.n. for pain. ALLERGIES: NO KNOWN DRUG ALLERGIES. DISCHARGE PLAN: The patient to follow up with primary care physician, Dr. Gonzalez, in 1 week; Dr. Poole in 10 days. BRIEF COURSE DURING HOSPITALIZATION: The patient initially got admitted on the with complaints of swelling on the medial aspect of the right thigh and knee aspect. He has had BKA on the same side. The patient had preliminary incision and drainage done in the ER with removal of nearly 100 mL purulent material. The patient still had extensive induration and fluctuance. He was admitted to medical floor. The patient has had consultation with Dr. Poole. In view of complex abscess with right BKA and uncontrolled diabetes, the patient was placed on broad-spectrum IV antibiotics. His cultures have grown MRSA. Post incision and drainage by Dr. Poole, the patient has recovered well. Per Dr. Poole' advice, the patient is advised to continue Bactrim Double Strength for another 2 weeks. He is hemodynamically stable and has been cleared for discharge by Dr. Poole. Please note, I have seen and examined the patient on the day of discharge. Job ID: [id number]
--- NOTE | 2020-02-14 19:46 | PQF ---
Dear : Jose Juan Poole Date Please exercise your independent, professional judgment in responding to the clarification form. Clinical indicators are provided on the bottom of this form for your review Can you please further clarify the type and depth of procedure being performed to the patient? Please check appropriate box(es): [ ] Excisional Debridement: [ ] Excised [ ] Cut away [ ] Other: Depth / layer: (deepest layer of debridement): [ ] Skin [ ] Subcutaneous [ ] Fascia [ ] Muscle [ ] Tendon [ ] Bone [ x ] Non-excisional Debridement: (Removal by flushing, brushing, chemical, or washing) Depth / layer: (deepest layer of debridement): [ ] Skin [ ] Subcutaneous [ ] Fascia [ ] Muscle [ ] Tendon [ ] Bone [ ] Incision and Drainage only (No Debridement): Depth: [ ] Skin [ ] Subcutaneous [ ] Fascia [ ] Muscle [ ] Tendon [ ] Bone [ ] Other procedure diagnosis [ ] Unable to determine Physician Signature: S Date/Time: 02/15 For continuity of documentation, please document condition throughout progress notes and discharge summary. Thank You. To be completed by CDI/Coding staff for physician review: Present Clinical Indicators - Signs / Symptoms / Labs Results and Location in Medical Record [ x ] Incision and drainage of lower extremity abscess OP report pg.1 [ x ] 3 separate incision, 1 was over fluctuant area in the medial aspect of his stump OP report pg.1 [ x ] Several centimeter proximally over the knee joint OP report pg.1 [ x ] 3rd was several centimeters proximally on the medial lower thigh OP report pg.1 [ x ] I flush the abscess tracts with peroxide copiously OP report pg.1 [ x ] I debrided the tracts with gauze by pulling gauze between 3 openings OP report pg.1 [ x ] Complex superficial abscess P N pg.1 02/12 Present Risk Factors Results and Location in Medical Record [ x ] Complex right lower extremity abscess OP Report pg.1 [ x ] DM H and P pg.1 [ x ] HTN H and P pg.1 [ x ] Smoker H and P pg.1 [ x ] Dyslipidemia H and P pg.1 Present Treatments Results and Location in Medical Record [ x ] IV Fluids MAR [ x ] Incision and drainage of lower extremity abscess OP report pg.1 [ x ] Surgery Consult Zulema Palmer 02/11 [ x ] IV antibiotics CDS/Carry In Worker Signature: Heron Duckworth Phone #: ext [phone] Date 02/14/2020 This is a permanent part of the Medical Record [facility]
--- NOTE | 2020-02-15 15:06 | EKG ---
Test Reason : SEPSIS Blood Pressure : / mmHG Vent. Rate : 109 BPM Atrial Rate : 109 BPM P-R Int : 162 ms QRS Dur : 082 ms QT Int : 332 ms P-R-T Axes : 013 007 -13 degrees QTc Int : 447 ms Sinus tachycardia Otherwise normal ECG Confirmed by JOSE RUIZ M.D. ([id number]), rewrite editor RON SALGUERO ([id number]) on 02/15/2020 3:05:47 PM Referred By: Confirmed By:JOSE RUIZ M.D.
== END 2020-02-13 14:06 | disposition home or self-care (01) | DRG 854 ==
LOC: ERS 12:22 → ERHOLD 17:57 → T4-B 21:36
PROVIDERS: ADMIT Internal Medicine; ATTEND Internal Medicine
PROC: 0J9L0ZZ Drainage of Right Upper Leg Subcutaneous Tissue and Fascia, Open Approach (ICD-10-PCS; principal; 2020-02-10)
PROC: 0JDN0ZZ Extraction of Right Lower Leg Subcutaneous Tissue and Fascia, Open Approach (ICD-10-PCS; 2020-02-12)
DX: A41.9 Sepsis, unspecified organism (principal); L03.115 Cellulitis of right lower limb; L02.415 Cutaneous abscess of right lower limb; Z20.828 Contact with and (suspected) exposure to other viral communicable diseases; E11.65 Type 2 diabetes mellitus with hyperglycemia; I10 Essential (primary) hypertension; E78.00 Pure hypercholesterolemia, unspecified; E78.5 Hyperlipidemia, unspecified; Z89.512 Acquired absence of left leg below knee; Z79.899 Other long term (current) drug therapy; Z79.84 Long term (current) use of oral hypoglycemic drugs
CPT/HCPCS: 36415; 36416; 71045; 80048; 80053; 80202; 83605; 85025; 87040; 87070; 87077; 87186; 87205; 87635; 93005; J0692; J1650; J1815; J2270; J2405; J2543; J2704; J3010; J3370; J3490; J7050; S0020; U0003

== ENCOUNTER 2020-09-03 09:05 | Outpatient (CLI) | payer MEDICARE | END 2020-09-03 09:06 | disposition home or self-care (01) | LOC: RAD 09:05 | PROVIDERS: ATTEND Family Medicine | DX: M54.9 Dorsalgia, unspecified (principal); G89.29 Other chronic pain; I10 Essential (primary) hypertension; M47.814 Spondylosis without myelopathy or radiculopathy, thoracic region; M47.816 Spondylosis without myelopathy or radiculopathy, lumbar region | CPT/HCPCS: 71046; 72070; 72100 ==

== ENCOUNTER 2020-09-11 08:00 | Outpatient (CLI) | payer MEDICARE | END 2020-09-11 08:01 | disposition home or self-care (01) | LOC: BICCT 08:00 | PROVIDERS: ATTEND Family Medicine | DX: R91.8 Other nonspecific abnormal finding of lung field (principal); J47.9 Bronchiectasis, uncomplicated; R16.0 Hepatomegaly, not elsewhere classified | CPT/HCPCS: 71260; 82565 ==

== ENCOUNTER 2021-04-25 09:36 | Inpatient (IN) | payer MEDICARE ==
[~2021-04-25 09:36] MED LIST changes: -EPINEPHrine 0.3 MG, Dextrose 50% 3 ML in Ophthalmic Irrigation Solution 500 ML IVP SCH; -Fentanyl 100 MCG/2 ML VIAL ONE; +Iopamidol 370 76% 100 ML VIAL ONE; -Midazolam HCl 2 mg/2 ml Vial ONE
[2021-04-25 10:04] LABS: #Lymphocytes 0.7 thou/uL (1.20-3.40); #Monocytes 0.2 thou/uL (0.11-0.59); #Neutrophils 6.7 thou/uL (1.40-6.50); %Eosinophils 0.2 % (0.0-10.0); %Lymphocytes 9.6 % (21.0-51.0); %Monocytes 2.3 % (0.0-10.0); %Neutrophils 87.9 % (42.0-75.0); Hemoglobin 13.9 g/dL (14.0-18.0); Mean Corpuscular HGB CONC 33.1 g/dL (32.0-36.0); Mean Corpuscular Hemoglobin 31.4 pg (27.0-31.0); Mean Corpuscular Volume 94.8 fL (78.0-98.0); Mean Platelet Volume 7.6 fL (7.4-10.4); Platelet Count 180 thou/uL (130-400); RBC Distribution Width 12.4 % (11.5-14.5); Red Blood Cell (RBC) Count 4.43 mill/uL (4.70-6.10); White Blood Cell (WBC) Count 7.6 thou/uL (4.8-10.8)
[2021-04-25 10:16] LABS: Prothrombin Time 13.5 sec (12.0-14.7)
[2021-04-25 10:17] LABS: PTT 42.2 sec (22.9-36.1)
[2021-04-25 10:25] LABS: ALT (SGPT) 23 U/L (8-55); AST (SGOT) 42 U/L (5-34); Albumin 2.9 g/dL (3.4-4.8); Alkaline Phosphatase 83 U/L (40-110); Anion Gap 16 mmol/L (10-20); BUN (Urea Nitrogen) 16 mg/dL (8.4-25.7); Bilirubin, Total 0.5 mg/dL (0.2-1.2); Calc. Creatinine Clearance 0 mL/min (70-130); Calcium 8.2 mg/dL (7.8-10.44); Carbon Dioxide 22 mmol/L (23-31); Chloride 102 mmol/L (98-107); Globulin 3.1 g/dL (2.4-3.5); Glucose 169 mg/dL (80-115); Potassium 4.4 mmol/L (3.5-5.1); Sodium 136 mmol/L (136-145)
[2021-04-25 12:05] LABS: SARS-CoV-2 NAA Rapid Test DETECTED (NotDetected)
[2021-04-25] MEDS ORDERED: hydrALAZINE 20 MG/ML VIAL SLOW IVP PRN (12:42)
[2021-04-25] MEDS ORDERED: Sodium Chloride 0.9% 1,000 ML IV SCH (12:45)
[2021-04-25] MEDS ORDERED: Albuterol 200 PUFF (6.7GM INHALER) INH PRN (12:46)
[2021-04-25] MEDS ORDERED: Dextrose 50% Abboject 50 ML SYRINGE SLOW IVP PRN (12:47)
[2021-04-25] MEDS ORDERED: Dextrose 5% in Water 1,000 ML IV PRN (12:47)
[2021-04-25] MEDS ORDERED: Aspirin 300 MG Suppository ONE (12:56)
[2021-04-25] MEDS: BARICITINIB 2 MG TAB PO SCH (15:54)
[2021-04-25] MEDS: Cefepime 1 GM in Sodium Chloride 0.9% 100 ML IVPB SCH (16:22)
[2021-04-25] MEDS: HumaLOG 300 UNITS/3 ML VIAL SC PRN (20:49)
[2021-04-25] MEDS: Dexamethasone 4 mg/ml Vial SLOW IVP SCH (20:49)
[2021-04-25] MEDS: Lantus 1000 UNITS/10 ML VIAL SC SCH (22:10)
[2021-04-25] MEDS: Atorvastatin Calcium 40 MG TAB PO SCH (22:10)
[2021-04-26] MEDS: Cefepime 1 GM in Sodium Chloride 0.9% 100 ML IVPB SCH ×2 (01:25→15:00)
[2021-04-26] MEDS: HumaLOG 300 UNITS/3 ML VIAL SC PRN ×2 (05:54→20:14)
[2021-04-26 06:58] LABS: #Lymphocytes 0.3 thou/uL (1.20-3.40); #Monocytes 0.2 thou/uL (0.11-0.59); #Neutrophils 3.6 thou/uL (1.40-6.50); %Eosinophils 0.2 % (0.0-10.0); %Lymphocytes 8.1 % (21.0-51.0); %Monocytes 4.8 % (0.0-10.0); %Neutrophils 86.9 % (42.0-75.0); Hemoglobin 13.3 g/dL (14.0-18.0); Mean Corpuscular HGB CONC 32.2 g/dL (32.0-36.0); Mean Corpuscular Hemoglobin 30.5 pg (27.0-31.0); Mean Corpuscular Volume 94.6 fL (78.0-98.0); Mean Platelet Volume 7.7 fL (7.4-10.4); Platelet Count 175 thou/uL (130-400); RBC Distribution Width 12.4 % (11.5-14.5); Red Blood Cell (RBC) Count 4.36 mill/uL (4.70-6.10); White Blood Cell (WBC) Count 4.1 thou/uL (4.8-10.8)
[2021-04-26 07:21] LABS: Hemoglobin A1c 7.9 % (4.0-6.0)
[2021-04-26 07:33] LABS: ALT (SGPT) 26 U/L (8-55); AST (SGOT) 37 U/L (5-34); Alkaline Phosphatase 76 U/L (40-110); Anion Gap 19 mmol/L (10-20); BUN (Urea Nitrogen) 19 mg/dL (8.4-25.7); Bilirubin, Total 0.6 mg/dL (0.2-1.2); CRP (Inflammatory) 29.62 mg/dL (= or < 0.5); Calc. Creatinine Clearance 71 mL/min (70-130); Calcium 8.7 mg/dL (7.8-10.44); Carbon Dioxide 20 mmol/L (23-31); Chloride 102 mmol/L (98-107); Globulin 3.8 g/dL (2.4-3.5); Glucose 213 mg/dL (80-115); Potassium 3.6 mmol/L (3.5-5.1); Protein, Total 6.8 g/dL (5.8-8.1); Sodium 137 mmol/L (136-145)
[2021-04-26 07:34] LABS: Cardiac Risk 8.3 (Less than 4.5)
[2021-04-26] MEDS: Aspirin 300 MG Suppository PR SCH (08:04)
[2021-04-26] MEDS: Pantoprazole 40 MG VIAL IVP SCH (08:04)
[2021-04-26] MEDS: Enoxaparin Sodium 40 MG/0.4 ML SYRINGE SC SCH (08:04)
[2021-04-26] MEDS: Cholecalciferol (Vitamin D3) 400 UNITS TAB PO SCH (08:05)
[2021-04-26] MEDS: Ascorbic Acid 500 mg Chewable Tablet PO SCH (08:05)
[2021-04-26] MEDS: Dexamethasone 4 mg/ml Vial SLOW IVP SCH ×2 (08:05→20:14)
[2021-04-26] MEDS: Zinc Sulfate 220 MG CAP PO SCH (08:06)
[2021-04-26] MEDS ORDERED: Prevnar 13-Val Conj/PF 0.5 ML SYRINGE IM ONE (14:30)
[2021-04-26] MEDS ORDERED: FLU VACC QS2021-22(6MOS UP)/PF 60 MCG/0.5 ML SYRINGE IM ONE (14:30)
[2021-04-26] MEDS ORDERED: Lorazepam 2 MG/ML VIAL SLOW IVP PRN (15:33)
[2021-04-26] MEDS: BARICITINIB 2 MG TAB PO SCH (15:37)
[2021-04-26] MEDS: Atorvastatin Calcium 40 MG TAB PO SCH (20:07)
[2021-04-26] MEDS: Lantus 1000 UNITS/10 ML VIAL SC SCH (21:50)
[2021-04-27] MEDS: Cefepime 1 GM in Sodium Chloride 0.9% 100 ML IVPB SCH (01:37)
[2021-04-27 03:20] LABS: #Lymphocytes 0.3 thou/uL (1.20-3.40); #Monocytes 0.4 thou/uL (0.11-0.59); #Neutrophils 3.4 thou/uL (1.40-6.50); %Basophils 0.8 % (0.0-1.0); %Eosinophils 0.3 % (0.0-10.0); %Lymphocytes 7.9 % (21.0-51.0); %Monocytes 8.6 % (0.0-10.0); %Neutrophils 82.4 % (42.0-75.0); Hemoglobin 13.1 g/dL (14.0-18.0); Mean Corpuscular HGB CONC 33.6 g/dL (32.0-36.0); Mean Corpuscular Hemoglobin 31.4 pg (27.0-31.0); Mean Corpuscular Volume 93.4 fL (78.0-98.0); Mean Platelet Volume 7.5 fL (7.4-10.4); Platelet Count 175 thou/uL (130-400); RBC Distribution Width 12.5 % (11.5-14.5); Red Blood Cell (RBC) Count 4.18 mill/uL (4.70-6.10); White Blood Cell (WBC) Count 4.2 thou/uL (4.8-10.8)
[2021-04-27] MEDS: HumaLOG 300 UNITS/3 ML VIAL SC PRN ×2 (05:34→21:39)
[2021-04-27 06:06] LABS: ALT (SGPT) 21 U/L (8-55); AST (SGOT) 34 U/L (5-34); Alkaline Phosphatase 71 U/L (40-110); Anion Gap 16 mmol/L (10-20); BUN (Urea Nitrogen) 30 mg/dL (8.4-25.7); Bilirubin, Total 0.5 mg/dL (0.2-1.2); CRP (Inflammatory) 15.36 mg/dL (= or < 0.5); Calc. Creatinine Clearance 56 mL/min (70-130); Carbon Dioxide 22 mmol/L (23-31); Chloride 106 mmol/L (98-107); Globulin 3.6 g/dL (2.4-3.5); Glucose 259 mg/dL (80-115); Potassium 4.1 mmol/L (3.5-5.1); Protein, Total 6.6 g/dL (5.8-8.1); Sodium 140 mmol/L (136-145)
[2021-04-27] MEDS: Aspirin 300 MG Suppository PR SCH (08:56)
[2021-04-27] MEDS: Pantoprazole 40 MG VIAL IVP SCH (08:56)
[2021-04-27] MEDS: Dexamethasone 4 mg/ml Vial SLOW IVP SCH ×2 (08:56→21:25)
[2021-04-27] MEDS: Ascorbic Acid 500 mg Chewable Tablet PO SCH (08:57)
[2021-04-27] MEDS: Cholecalciferol (Vitamin D3) 400 UNITS TAB PO SCH (08:57)
[2021-04-27] MEDS: Enoxaparin Sodium 40 MG/0.4 ML SYRINGE SC SCH (08:57)
[2021-04-27] MEDS: Zinc Sulfate 220 MG CAP PO SCH (08:57)
[2021-04-27] MEDS ORDERED: BARICITINIB 2 MG TAB PO SCH (15:00)
[2021-04-27] MEDS ORDERED: Lisinopril 10 MG TAB PO SCH (21:00)
[2021-04-27] MEDS: Atorvastatin Calcium 40 MG TAB PO SCH (21:25)
[2021-04-27] MEDS: Lantus 1000 UNITS/10 ML VIAL SC SCH (21:38)
[2021-04-28] MEDS ORDERED: Cefepime 1 GM in Sodium Chloride 0.9% 100 ML IVPB SCH (01:00)
[2021-04-28 05:04] LABS: #Lymphocytes 0.4 thou/uL (1.20-3.40); #Monocytes 0.5 thou/uL (0.11-0.59); #Neutrophils 5.3 thou/uL (1.40-6.50); %Basophils 0.2 % (0.0-1.0); %Eosinophils 0.1 % (0.0-10.0); %Lymphocytes 6.1 % (21.0-51.0); %Monocytes 8.3 % (0.0-10.0); %Neutrophils 85.3 % (42.0-75.0); Hemoglobin 13.4 g/dL (14.0-18.0); Mean Corpuscular HGB CONC 32.4 g/dL (32.0-36.0); Mean Corpuscular Hemoglobin 30.5 pg (27.0-31.0); Mean Corpuscular Volume 94.2 fL (78.0-98.0); Mean Platelet Volume 7.8 fL (7.4-10.4); Platelet Count 209 thou/uL (130-400); RBC Distribution Width 12.5 % (11.5-14.5); Red Blood Cell (RBC) Count 4.41 mill/uL (4.70-6.10); White Blood Cell (WBC) Count 6.2 thou/uL (4.8-10.8)
[2021-04-28 06:05] LABS: ALT (SGPT) 22 U/L (8-55); AST (SGOT) 23 U/L (5-34); Albumin 3.2 g/dL (3.4-4.8); Alkaline Phosphatase 84 U/L (40-110); Anion Gap 13 mmol/L (10-20); BUN (Urea Nitrogen) 37 mg/dL (8.4-25.7); Bilirubin, Total 0.8 mg/dL (0.2-1.2); CRP (Inflammatory) 6.19 mg/dL (= or < 0.5); Calc. Creatinine Clearance 59 mL/min (70-130); Calcium 9.3 mg/dL (7.8-10.44); Carbon Dioxide 25 mmol/L (23-31); Chloride 105 mmol/L (98-107); Globulin 3.7 g/dL (2.4-3.5); Glucose 277 mg/dL (80-115); Potassium 4.3 mmol/L (3.5-5.1); Protein, Total 6.9 g/dL (5.8-8.1); Sodium 139 mmol/L (136-145)
[2021-04-28] MEDS: Zinc Sulfate 220 MG CAP PO SCH (08:51)
[2021-04-28] MEDS: Cholecalciferol (Vitamin D3) 400 UNITS TAB PO SCH (08:51)
[2021-04-28] MEDS: Ascorbic Acid 500 mg Chewable Tablet PO SCH (08:51)
[2021-04-28] MEDS: Dexamethasone 4 mg/ml Vial SLOW IVP SCH (08:51)
[2021-04-28] MEDS: Enoxaparin Sodium 40 MG/0.4 ML SYRINGE SC SCH (08:52)
[2021-04-28] MEDS: Aspirin 300 MG Suppository PR SCH (08:58)
[2021-04-28] MEDS: HYDROcodone/Acetaminophen 5/325 mg Tablet PO PRN ×3 (10:50→22:40)
[2021-04-28] MEDS: Cefepime 1 GM in Sodium Chloride 0.9% 100 ML IVPB SCH (12:26)
[2021-04-28] MEDS: HumaLOG 300 UNITS/3 ML VIAL SC PRN ×2 (12:26→22:40)
[2021-04-28 14:23] VITALS: BMI 23.4
[2021-04-28] MEDS ORDERED: Amlodipine 10 MG TAB PO SCH (14:30)
[2021-04-28] MEDS: BARICITINIB 2 MG TAB PO SCH (15:41)
[2021-04-28] MEDS: Atorvastatin Calcium 40 MG TAB PO SCH (21:04)
[2021-04-28] MEDS: Lisinopril 10 MG TAB PO SCH (21:04)
[2021-04-28] MEDS: Lantus 1000 UNITS/10 ML VIAL SC SCH (21:04)
[2021-04-28] MEDS ORDERED: Dextrose 50% Abboject 50 ML SYRINGE SLOW IVP PRN (21:29)
[2021-04-28] MEDS ORDERED: Dextrose 5% in Water 1,000 ML IV PRN (21:29)
[2021-04-29] MEDS: Cefepime 1 GM in Sodium Chloride 0.9% 100 ML IVPB SCH ×2 (01:36→13:19)
[2021-04-29 05:35] LABS: ALT (SGPT) 20 U/L (8-55); AST (SGOT) 21 U/L (5-34); Alkaline Phosphatase 78 U/L (40-110); Anion Gap 10 mmol/L (10-20); BUN (Urea Nitrogen) 39 mg/dL (8.4-25.7); Bilirubin, Total 0.8 mg/dL (0.2-1.2); Calc. Creatinine Clearance 68 mL/min (70-130); Calcium 8.8 mg/dL (7.8-10.44); Carbon Dioxide 27 mmol/L (23-31); Chloride 106 mmol/L (98-107); Globulin 3.5 g/dL (2.4-3.5); Glucose 295 mg/dL (80-115); Potassium 4.1 mmol/L (3.5-5.1); Protein, Total 6.5 g/dL (5.8-8.1); Sodium 139 mmol/L (136-145)
[2021-04-29] MEDS: HumaLOG 300 UNITS/3 ML VIAL SC PRN ×3 (05:59→20:29)
[2021-04-29] MEDS: Enoxaparin Sodium 40 MG/0.4 ML SYRINGE SC SCH (09:30)
[2021-04-29] MEDS: Lisinopril 10 MG TAB PO SCH ×2 (09:31→20:30)
[2021-04-29] MEDS: Ascorbic Acid 500 mg Chewable Tablet PO SCH (09:31)
[2021-04-29] MEDS: Dexamethasone 4 mg/ml Vial SLOW IVP SCH (09:31)
[2021-04-29] MEDS: Lantus 1000 UNITS/10 ML VIAL SC SCH ×2 (09:31→20:29)
[2021-04-29] MEDS: Amlodipine 5 MG TAB PO SCH (09:32)
[2021-04-29] MEDS: Cholecalciferol (Vitamin D3) 400 UNITS TAB PO SCH (09:32)
[2021-04-29] MEDS: Aspirin 300 MG Suppository PR SCH (09:32)
[2021-04-29] MEDS: Zinc Sulfate 220 MG CAP PO SCH (09:32)
[2021-04-29] MEDS: HYDROcodone/Acetaminophen 5/325 mg Tablet PO PRN ×2 (13:15→20:30)
[2021-04-29] MEDS: BARICITINIB 2 MG TAB PO SCH (13:19)
[2021-04-29] MEDS: Atorvastatin Calcium 40 MG TAB PO SCH (20:29)
[2021-04-30] MEDS: Cefepime 1 GM in Sodium Chloride 0.9% 100 ML IVPB SCH (01:44)
[2021-04-30 05:32] LABS: ALT (SGPT) 20 U/L (8-55); AST (SGOT) 21 U/L (5-34); Albumin 3.2 g/dL (3.4-4.8); Alkaline Phosphatase 90 U/L (40-110); Anion Gap 16 mmol/L (10-20); BUN (Urea Nitrogen) 36 mg/dL (8.4-25.7); Bilirubin, Total 0.8 mg/dL (0.2-1.2); CRP (Inflammatory) 2.36 mg/dL (= or < 0.5); Calc. Creatinine Clearance 65 mL/min (70-130); Carbon Dioxide 23 mmol/L (23-31); Chloride 105 mmol/L (98-107); Globulin 3.5 g/dL (2.4-3.5); Glucose 264 mg/dL (80-115); Protein, Total 6.7 g/dL (5.8-8.1); Sodium 140 mmol/L (136-145)
[2021-04-30] MEDS: HumaLOG 300 UNITS/3 ML VIAL SC PRN ×3 (06:00→21:08)
[2021-04-30] MEDS: HYDROcodone/Acetaminophen 5/325 mg Tablet PO PRN ×3 (06:24→21:07)
[2021-04-30] MEDS: Lantus 1000 UNITS/10 ML VIAL SC SCH ×2 (07:28→21:08)
[2021-04-30] MEDS: Cholecalciferol (Vitamin D3) 400 UNITS TAB PO SCH (07:29)
[2021-04-30] MEDS: Enoxaparin Sodium 40 MG/0.4 ML SYRINGE SC SCH (07:29)
[2021-04-30] MEDS: Aspirin 300 MG Suppository PR SCH (07:29)
[2021-04-30] MEDS: Zinc Sulfate 220 MG CAP PO SCH (07:29)
[2021-04-30] MEDS: Amlodipine 5 MG TAB PO SCH (07:29)
[2021-04-30] MEDS: Dexamethasone 4 mg/ml Vial SLOW IVP SCH (07:29)
[2021-04-30] MEDS: Lisinopril 10 MG TAB PO SCH ×2 (07:30→21:06)
[2021-04-30] MEDS: Ascorbic Acid 500 mg Chewable Tablet PO SCH (07:30)
[2021-04-30] MEDS ORDERED: Cyclobenzaprine 10 MG TAB PO SCH (13:30)
[2021-04-30] MEDS: BARICITINIB 2 MG TAB PO SCH (15:05)
[2021-04-30] MEDS: Atorvastatin Calcium 40 MG TAB PO SCH (21:06)
[2021-05-01] MEDS: HYDROcodone/Acetaminophen 5/325 mg Tablet PO PRN (04:47)
[2021-05-01 05:53] LABS: ALT (SGPT) 21 U/L (8-55); AST (SGOT) 38 U/L (5-34); Albumin 2.9 g/dL (3.4-4.8); Alkaline Phosphatase 90 U/L (40-110); Anion Gap 13 mmol/L (10-20); BUN (Urea Nitrogen) 31 mg/dL (8.4-25.7); Bilirubin, Total 0.8 mg/dL (0.2-1.2); Calc. Creatinine Clearance 73 mL/min (70-130); Calcium 8.8 mg/dL (7.8-10.44); Carbon Dioxide 23 mmol/L (23-31); Chloride 104 mmol/L (98-107); Globulin 4.2 g/dL (2.4-3.5); Glucose 112 mg/dL (80-115); Potassium 4.5 mmol/L (3.5-5.1); Protein, Total 7.1 g/dL (5.8-8.1); Sodium 135 mmol/L (136-145)
[2021-05-01] MEDS: Lisinopril 10 MG TAB PO SCH ×2 (08:57→21:19)
[2021-05-01] MEDS: Amlodipine 5 MG TAB PO SCH (08:57)
[2021-05-01] MEDS: Acetaminophen 325 MG TAB PO PRN (08:57)
[2021-05-01] MEDS: Zinc Sulfate 220 MG CAP PO SCH (08:57)
[2021-05-01] MEDS: Aspirin 325 MG TAB PO SCH (08:57)
[2021-05-01] MEDS: Cholecalciferol (Vitamin D3) 400 UNITS TAB PO SCH (08:58)
[2021-05-01] MEDS: Dexamethasone 4 mg/ml Vial SLOW IVP SCH (08:58)
[2021-05-01] MEDS: Ascorbic Acid 500 mg Chewable Tablet PO SCH (08:58)
[2021-05-01] MEDS: Enoxaparin Sodium 40 MG/0.4 ML SYRINGE SC SCH (08:59)
[2021-05-01] MEDS: Lantus 1000 UNITS/10 ML VIAL SC SCH ×2 (09:00→21:20)
[2021-05-01] MEDS: BARICITINIB 2 MG TAB PO SCH (15:47)
[2021-05-01] MEDS: Atorvastatin Calcium 40 MG TAB PO SCH (21:19)
[2021-05-01] MEDS: HumaLOG 300 UNITS/3 ML VIAL SC PRN (21:20)
[2021-05-02 05:38] LABS: ALT (SGPT) 18 U/L (8-55); AST (SGOT) 28 U/L (5-34); Alkaline Phosphatase 90 U/L (40-110); Anion Gap 13 mmol/L (10-20); BUN (Urea Nitrogen) 46 mg/dL (8.4-25.7); Bilirubin, Total 0.8 mg/dL (0.2-1.2); Calc. Creatinine Clearance 55 mL/min (70-130); Calcium 8.7 mg/dL (7.8-10.44); Carbon Dioxide 25 mmol/L (23-31); Chloride 101 mmol/L (98-107); Globulin 3.4 g/dL (2.4-3.5); Glucose 126 mg/dL (80-115); Potassium 3.9 mmol/L (3.5-5.1); Protein, Total 6.4 g/dL (5.8-8.1); Sodium 135 mmol/L (136-145)
[2021-05-02] MEDS: Zinc Sulfate 220 MG CAP PO SCH (09:24)
[2021-05-02] MEDS: Aspirin 325 MG TAB PO SCH (09:24)
[2021-05-02] MEDS: Lisinopril 10 MG TAB PO SCH ×2 (09:24→20:48)
[2021-05-02] MEDS: Enoxaparin Sodium 40 MG/0.4 ML SYRINGE SC SCH (09:25)
[2021-05-02] MEDS: Amlodipine 5 MG TAB PO SCH (09:25)
[2021-05-02] MEDS: Dexamethasone 4 mg/ml Vial SLOW IVP SCH (09:25)
[2021-05-02] MEDS: Ascorbic Acid 500 mg Chewable Tablet PO SCH (09:25)
[2021-05-02] MEDS: Cholecalciferol (Vitamin D3) 400 UNITS TAB PO SCH (09:25)
[2021-05-02] MEDS: Lantus 1000 UNITS/10 ML VIAL SC SCH ×2 (09:26→20:48)
[2021-05-02] MEDS ORDERED: Pharmacy to Dose BARICITINIB IVPB PRN (11:45)
[2021-05-02] MEDS: BARICITINIB 2 MG TAB PO SCH (15:40)
[2021-05-02] MEDS ORDERED: Clopidogrel Bisulfate 75 MG TAB PO SCH (17:15)
[2021-05-02] MEDS: Atorvastatin Calcium 40 MG TAB PO SCH (20:48)
[2021-05-02] MEDS: HYDROcodone/Acetaminophen 5/325 mg Tablet PO PRN (21:37)
[2021-05-03] MEDS: Clopidogrel Bisulfate 75 MG TAB PO SCH (08:59)
[2021-05-03] MEDS: Lisinopril 10 MG TAB PO SCH ×2 (08:59→22:47)
[2021-05-03] MEDS: Amlodipine 5 MG TAB PO SCH (08:59)
[2021-05-03] MEDS: Zinc Sulfate 220 MG CAP PO SCH (08:59)
[2021-05-03] MEDS: Aspirin 325 MG TAB PO SCH (09:00)
[2021-05-03] MEDS: Ascorbic Acid 500 mg Chewable Tablet PO SCH (09:00)
[2021-05-03] MEDS: Cholecalciferol (Vitamin D3) 400 UNITS TAB PO SCH (09:00)
[2021-05-03] MEDS: Enoxaparin Sodium 40 MG/0.4 ML SYRINGE SC SCH (09:00)
[2021-05-03] MEDS: Dexamethasone 4 mg/ml Vial SLOW IVP SCH (09:00)
[2021-05-03] MEDS: Lantus 1000 UNITS/10 ML VIAL SC SCH ×2 (09:02→22:48)
[2021-05-03] MEDS: Acetaminophen 325 MG TAB PO PRN ×2 (09:20→17:45)
[2021-05-03] MEDS: BARICITINIB 2 MG TAB PO SCH (17:38)
[2021-05-03] MEDS: Atorvastatin Calcium 40 MG TAB PO SCH (22:47)
[2021-05-04 05:30] LABS: #Eosinphils 0.1 thou/uL (0.0-0.7); #Lymphocytes 1.1 thou/uL (1.20-3.40); #Monocytes 0.7 thou/uL (0.11-0.59); #Neutrophils 12.8 thou/uL (1.40-6.50); %Basophils 0.1 % (0.0-1.0); %Eosinophils 0.6 % (0.0-10.0); %Lymphocytes 7.2 % (21.0-51.0); %Monocytes 4.5 % (0.0-10.0); %Neutrophils 87.7 % (42.0-75.0); Hemoglobin 13.5 g/dL (14.0-18.0); Mean Corpuscular HGB CONC 32.2 g/dL (32.0-36.0); Mean Corpuscular Hemoglobin 30.8 pg (27.0-31.0); Mean Corpuscular Volume 95.6 fL (78.0-98.0); Mean Platelet Volume 8.4 fL (7.4-10.4); Platelet Count 256 thou/uL (130-400); RBC Distribution Width 13.2 % (11.5-14.5); Red Blood Cell (RBC) Count 4.39 mill/uL (4.70-6.10); White Blood Cell (WBC) Count 14.6 thou/uL (4.8-10.8)
[2021-05-04 06:11] LABS: ALT (SGPT) 16 U/L (8-55); AST (SGOT) 28 U/L (5-34); Alkaline Phosphatase 90 U/L (40-110); Anion Gap 11 mmol/L (10-20); BUN (Urea Nitrogen) 38 mg/dL (8.4-25.7); Bilirubin, Direct 0.3 mg/dL (0.1-0.3); Bilirubin, Total 0.7 mg/dL (0.2-1.2); Calc. Creatinine Clearance 66 mL/min (70-130); Calcium 8.9 mg/dL (7.8-10.44); Carbon Dioxide 25 mmol/L (23-31); Chloride 100 mmol/L (98-107); Glucose 123 mg/dL (80-115); Potassium 4.3 mmol/L (3.5-5.1); Protein, Total 6.4 g/dL (5.8-8.1); Sodium 132 mmol/L (136-145)
[2021-05-04] MEDS: Lantus 1000 UNITS/10 ML VIAL SC SCH ×2 (09:29→21:17)
[2021-05-04] MEDS: Ascorbic Acid 500 mg Chewable Tablet PO SCH (09:30)
[2021-05-04] MEDS: Enoxaparin Sodium 40 MG/0.4 ML SYRINGE SC SCH (09:30)
[2021-05-04] MEDS: Amlodipine 5 MG TAB PO SCH (09:31)
[2021-05-04] MEDS: Aspirin 325 MG TAB PO SCH (09:31)
[2021-05-04] MEDS: Clopidogrel Bisulfate 75 MG TAB PO SCH (09:31)
[2021-05-04] MEDS: Lisinopril 10 MG TAB PO SCH ×2 (09:31→21:19)
[2021-05-04] MEDS: Cholecalciferol (Vitamin D3) 400 UNITS TAB PO SCH (09:32)
[2021-05-04] MEDS: Dexamethasone 4 mg/ml Vial SLOW IVP SCH (09:32)
[2021-05-04] MEDS: Zinc Sulfate 220 MG CAP PO SCH (09:32)
[2021-05-04] MEDS: BARICITINIB 2 MG TAB PO SCH (14:27)
[2021-05-04] MEDS: HumaLOG 300 UNITS/3 ML VIAL SC PRN ×2 (18:02→21:16)
[2021-05-04] MEDS: HYDROcodone/Acetaminophen 5/325 mg Tablet PO PRN (21:18)
[2021-05-04] MEDS: Atorvastatin Calcium 40 MG TAB PO SCH (21:18)
[2021-05-05 05:05] LABS: #Eosinphils 0.1 thou/uL (0.0-0.7); #Lymphocytes 1.1 thou/uL (1.20-3.40); #Monocytes 0.9 thou/uL (0.11-0.59); #Neutrophils 14.7 thou/uL (1.40-6.50); %Basophils 0.1 % (0.0-1.0); %Eosinophils 0.9 % (0.0-10.0); %Lymphocytes 6.4 % (21.0-51.0); %Monocytes 5.2 % (0.0-10.0); %Neutrophils 87.4 % (42.0-75.0); Hemoglobin 13.6 g/dL (14.0-18.0); Mean Corpuscular HGB CONC 31.5 g/dL (32.0-36.0); Mean Corpuscular Hemoglobin 29.7 pg (27.0-31.0); Mean Corpuscular Volume 94.5 fL (78.0-98.0); Mean Platelet Volume 8.8 fL (7.4-10.4); Platelet Count 261 thou/uL (130-400); RBC Distribution Width 13.2 % (11.5-14.5); Red Blood Cell (RBC) Count 4.59 mill/uL (4.70-6.10); White Blood Cell (WBC) Count 17.2 thou/uL (4.8-10.8)
[2021-05-05 05:18] LABS: Anion Gap 14 mmol/L (10-20); BUN (Urea Nitrogen) 35 mg/dL (8.4-25.7); Calc. Creatinine Clearance 73 mL/min (70-130); Carbon Dioxide 22 mmol/L (23-31); Chloride 104 mmol/L (98-107); Glucose 81 mg/dL (80-115); Potassium 4.6 mmol/L (3.5-5.1); Sodium 135 mmol/L (136-145)
[2021-05-05 06:02] LABS: Band 2 % (5-11); Lymphocytes 9 % (21-51); MDiff Complete? YES; Monocytes 4 % (0-10); Neutrophil 85 % (42-75); Platelet Morphology Comment Appears Adequate; RBC Morphology Normal
[2021-05-05] MEDS: Enoxaparin Sodium 40 MG/0.4 ML SYRINGE SC SCH (08:59)
[2021-05-05] MEDS: Cholecalciferol (Vitamin D3) 400 UNITS TAB PO SCH (09:00)
[2021-05-05] MEDS: Dexamethasone 4 mg/ml Vial SLOW IVP SCH (09:00)
[2021-05-05] MEDS: Amlodipine 5 MG TAB PO SCH (09:00)
[2021-05-05] MEDS: Aspirin 325 MG TAB PO SCH (09:00)
[2021-05-05] MEDS: Clopidogrel Bisulfate 75 MG TAB PO SCH (09:01)
[2021-05-05] MEDS: Ascorbic Acid 500 mg Chewable Tablet PO SCH (09:01)
[2021-05-05] MEDS: Lisinopril 10 MG TAB PO SCH ×3 (09:01→20:25)
[2021-05-05] MEDS: Zinc Sulfate 220 MG CAP PO SCH (09:01)
[2021-05-05] MEDS: Lantus 1000 UNITS/10 ML VIAL SC SCH ×2 (09:02→20:14)
[2021-05-05] MEDS: HYDROcodone/Acetaminophen 5/325 mg Tablet PO PRN (12:53)
[2021-05-05] MEDS: BARICITINIB 2 MG TAB PO SCH (17:46)
[2021-05-05] MEDS: HumaLOG 300 UNITS/3 ML VIAL SC PRN (17:47)
[2021-05-05] MEDS: Atorvastatin Calcium 40 MG TAB PO SCH (20:13)
[2021-05-06 04:38] LABS: #Eosinphils 0.1 thou/uL (0.0-0.7); #Lymphocytes 1.3 thou/uL (1.20-3.40); #Neutrophils 13.2 thou/uL (1.40-6.50); %Basophils 0.1 % (0.0-1.0); %Eosinophils 0.5 % (0.0-10.0); %Lymphocytes 8.1 % (21.0-51.0); %Monocytes 6.2 % (0.0-10.0); %Neutrophils 85.2 % (42.0-75.0); Hemoglobin 14.1 g/dL (14.0-18.0); Mean Corpuscular HGB CONC 32.6 g/dL (32.0-36.0); Mean Corpuscular Hemoglobin 30.8 pg (27.0-31.0); Mean Corpuscular Volume 94.6 fL (78.0-98.0); Mean Platelet Volume 8.5 fL (7.4-10.4); Platelet Count 316 thou/uL (130-400); RBC Distribution Width 13.2 % (11.5-14.5); Red Blood Cell (RBC) Count 4.58 mill/uL (4.70-6.10); White Blood Cell (WBC) Count 15.5 thou/uL (4.8-10.8)
[2021-05-06 04:59] LABS: Anion Gap 13 mmol/L (10-20); BUN (Urea Nitrogen) 39 mg/dL (8.4-25.7); Calc. Creatinine Clearance 70 mL/min (70-130); Carbon Dioxide 24 mmol/L (23-31); Chloride 102 mmol/L (98-107); Glucose 75 mg/dL (80-115); Potassium 4.7 mmol/L (3.5-5.1); Sodium 134 mmol/L (136-145)
[2021-05-06] MEDS: HYDROcodone/Acetaminophen 5/325 mg Tablet PO PRN ×3 (05:25→15:08)
[2021-05-06] MEDS: Ascorbic Acid 500 mg Chewable Tablet PO SCH (09:18)
[2021-05-06] MEDS: Amlodipine 5 MG TAB PO SCH (09:18)
[2021-05-06] MEDS: Lisinopril 10 MG TAB PO SCH ×2 (09:19→20:11)
[2021-05-06] MEDS: Cholecalciferol (Vitamin D3) 400 UNITS TAB PO SCH (09:19)
[2021-05-06] MEDS: Aspirin 325 MG TAB PO SCH (09:19)
[2021-05-06] MEDS: Clopidogrel Bisulfate 75 MG TAB PO SCH (09:19)
[2021-05-06] MEDS: Zinc Sulfate 220 MG CAP PO SCH (09:19)
[2021-05-06] MEDS: Dexamethasone 4 mg/ml Vial SLOW IVP SCH (09:20)
[2021-05-06] MEDS: Lantus 1000 UNITS/10 ML VIAL SC SCH ×2 (09:21→20:11)
[2021-05-06] MEDS: Enoxaparin Sodium 40 MG/0.4 ML SYRINGE SC SCH (09:21)
[2021-05-06] MEDS: BARICITINIB 2 MG TAB PO SCH (15:07)
[2021-05-06] MEDS: Sodium Chloride 0.9% 1,000 ML IV SCH (18:56)
[2021-05-06] MEDS: Atorvastatin Calcium 40 MG TAB PO SCH (20:12)
[2021-05-07 05:14] LABS: ALT (SGPT) 16 U/L (8-55); AST (SGOT) 22 U/L (5-34); Albumin 2.9 g/dL (3.4-4.8); Alkaline Phosphatase 82 U/L (40-110); Bilirubin, Direct 0.3 mg/dL (0.1-0.3); Bilirubin, Total 0.5 mg/dL (0.2-1.2)
[2021-05-07] MEDS: Lisinopril 10 MG TAB PO SCH ×2 (08:39→20:29)
[2021-05-07] MEDS: Aspirin 325 MG TAB PO SCH (08:39)
[2021-05-07] MEDS: Enoxaparin Sodium 40 MG/0.4 ML SYRINGE SC SCH (08:39)
[2021-05-07] MEDS: Amlodipine 5 MG TAB PO SCH (08:39)
[2021-05-07] MEDS: Ascorbic Acid 500 mg Chewable Tablet PO SCH (08:39)
[2021-05-07] MEDS: Clopidogrel Bisulfate 75 MG TAB PO SCH (08:39)
[2021-05-07] MEDS: Zinc Sulfate 220 MG CAP PO SCH (08:39)
[2021-05-07] MEDS: Cholecalciferol (Vitamin D3) 400 UNITS TAB PO SCH (08:39)
[2021-05-07] MEDS: Lantus 1000 UNITS/10 ML VIAL SC SCH ×2 (08:40→20:30)
[2021-05-07] MEDS: Dexamethasone 4 mg/ml Vial SLOW IVP SCH (08:41)
[2021-05-07] MEDS: Sodium Chloride 0.9% 1,000 ML IV SCH ×2 (08:44→23:01)
[2021-05-07] MEDS: BARICITINIB 2 MG TAB PO SCH (15:12)
[2021-05-07] MEDS: HumaLOG 300 UNITS/3 ML VIAL SC PRN (17:53)
[2021-05-07] MEDS: Atorvastatin Calcium 40 MG TAB PO SCH (20:29)
[2021-05-08 08:51] VITALS: BP 114/57; TEMP 97.5
[2021-05-08] MEDS ORDERED: HYDROcodone/Acetaminophen 5/325 mg Tablet PO PRN (08:56)
[2021-05-08] MEDS ORDERED: Lansoprazole 3 MG/ML ORAL SUSPENSION PO SCH (09:00)
[2021-05-08] MEDS: Ascorbic Acid 500 mg Chewable Tablet PO SCH (10:01)
[2021-05-08] MEDS: Amlodipine 5 MG TAB PO SCH (10:01)
[2021-05-08] MEDS: Enoxaparin Sodium 40 MG/0.4 ML SYRINGE SC SCH (10:01)
[2021-05-08] MEDS: Aspirin 325 MG TAB PO SCH (10:02)
[2021-05-08] MEDS: Zinc Sulfate 220 MG CAP PO SCH (10:02)
[2021-05-08] MEDS: Lisinopril 10 MG TAB PO SCH (10:02)
[2021-05-08] MEDS: Cholecalciferol (Vitamin D3) 400 UNITS TAB PO SCH (10:02)
[2021-05-08] MEDS: Dexamethasone 4 mg/ml Vial SLOW IVP SCH (10:02)
[2021-05-08] MEDS: Clopidogrel Bisulfate 75 MG TAB PO SCH (10:02)
[2021-05-08] MEDS: Lantus 1000 UNITS/10 ML VIAL SC SCH (10:03)
== END 2021-05-08 12:05 | DRG 64 ==
LOC: ERS 09:36 → IMCU/EMU 12:23 → 2SW 04-27 19:58
PROVIDERS: ADMIT Emergency Medicine; ATTEND Hospitalist
PROC: XW0DXM6 Introduction of Baricitinib into Mouth and Pharynx, External Approach, New Technology Group 6 (ICD-10-PCS; principal; 2021-04-25)
PROC: 3E0333Z Introduction of Anti-inflammatory into Peripheral Vein, Percutaneous Approach (ICD-10-PCS; 2021-04-25)
PROC: 8E0ZXY6 Isolation (ICD-10-PCS; 2021-04-25)
DX: I63.9 Cerebral infarction, unspecified (principal); J96.01 Acute respiratory failure with hypoxia; U07.1 COVID-19; J12.82 Pneumonia due to coronavirus disease 2019; A41.9 Sepsis, unspecified organism; G81.94 Hemiplegia, unspecified affecting left nondominant side; L02.415 Cutaneous abscess of right lower limb; L97.909 Non-pressure chronic ulcer of unspecified part of unspecified lower leg with unspecified severity; I10 Essential (primary) hypertension; E78.00 Pure hypercholesterolemia, unspecified; F17.200 Nicotine dependence, unspecified, uncomplicated; E78.5 Hyperlipidemia, unspecified; E11.65 Type 2 diabetes mellitus with hyperglycemia; R29.810 Facial weakness; R47.1 Dysarthria and anarthria; I65.21 Occlusion and stenosis of right carotid artery; E11.622 Type 2 diabetes mellitus with other skin ulcer; E11.42 Type 2 diabetes mellitus with diabetic polyneuropathy; I65.01 Occlusion and stenosis of right vertebral artery; Z89.511 Acquired absence of right leg below knee; Z89.422 Acquired absence of other left toe(s)
CPT/HCPCS: 36415; 36416; 70450; 70496; 70498; 71045; 80048; 80053; 80061; 80076; 83036; 84145; 84484; 85025; 85610; 85730; 86140; 93005; 93306; 93880; 99292; C9113; J0692; J1100; J1650; J1815; J3490; J7050; Q9967; U0002